=== PATIENT | male | born 1985 | race Caucasian/White ===

== ENCOUNTER 2024-01-03 20:40 | Emergency (ER) | payer OTHER ==
[~2024-01-03] VITALS: Ht 188 cm; Wt 117.9 kg
[2024-01-03 21:16] VITALS: BP_SYST 148; PULSE 98; RESP 22; TEMP 97.8; O2SAT 98
[2024-01-03 22:07] LABS: BASOPHILS # (AUTO) 0.1 K/uL (0.0-0.2); EOSINOPHILS # (AUTO) 0.3 K/uL (0.0-0.4); EOSINOPHILS % (AUTO) 3.4 % (0.0-4.0); HEMATOCRIT 42.1 % (36-54); HEMOGLOBIN 14.7 g/dL (14.0-18.0); LYMPHOCYTES # (AUTO) 3.9 K/uL (1.0-5.5); LYMPHOCYTES % (AUTO) 42.6 % (20.5-51.5); MEAN CORPUSCULAR HEMOGLOBIN 30 pg (27-31); MEAN CORPUSCULAR HGB CONC 35 % (32-36); MEAN CORPUSCULAR VOLUME 87 fL (79.0-98.0); MONOCYTES % (AUTO) 11.5 % (1.7-9.3); NEUTROPHILS # (AUTO) 3.8 K/uL (1.8-7.7); NEUTROPHILS % (AUTO) 41.5 % (40.0-70.0); PLATELET COUNT (AUTO) 228 K/uL (130-430); RED BLOOD CELL COUNT(AUTO) 4.83 MIL/uL (4.2-6.2); WHITE BLOOD COUNT (AUTO) 9.1 K/uL (4.8-10.8)
[2024-01-03 22:23] LABS: ALBUMIN 3.7 g/dL (3.4-4.8); CALCIUM 9.2 mg/dL (8.4-11.0); CREATININE 1.2 mg/dL (0.55-1.30); POTASSIUM 4.4 mmol/L (3.5-5.1); TOTAL BILIRUBIN 0.4 mg/dL (0.0-1.0); TOTAL PROTEIN, SERUM 6.9 g/dL (6.4-8.3)
[2024-01-03 23:23] VITALS: BP_SYST 148; PULSE 98; RESP 22; TEMP 97.8; O2SAT 98
== END 2024-01-03 23:10 | disposition home or self-care (01) ==
LOC: SED 20:40
DX: Z00.00 Encounter for general adult medical examination without abnormal findings (principal); R14.0 Abdominal distension (gaseous); Z79.899 Other long term (current) drug therapy
CPT/HCPCS: 36415; 80053; 85025; 99283

== ENCOUNTER 2024-01-11 13:15 | Emergency (ER) | payer OTHER ==
[~2024-01-11] VITALS: Ht 188 cm; Wt 116.1 kg
[2024-01-11 13:20] VITALS: BP_SYST 108; PULSE 101; RESP 18; TEMP 98; O2SAT 97
[2024-01-11 14:23] VITALS: BP_SYST 108; PULSE 101; RESP 18; TEMP 98; O2SAT 97
== END 2024-01-11 14:20 | disposition home or self-care (01) ==
LOC: SED 13:15
DX: M25.511 Pain in right shoulder (principal)
CPT/HCPCS: 99283